=== PATIENT | female | born 1970 | race Caucasian/White ===

== ENCOUNTER 2016-08-01 05:22 | Emergency (ER) | payer MEDICAID ==
[~2016-08-01] VITALS: Ht 170.2 cm; Wt 80.0 kg
[2016-08-01 06:03] LABS: DAU SCREEN DISCLAIMER
[2016-08-01 06:17] LABS: BLOOD UREA NITROGEN 9 mg/dL (7-18)
[2016-08-01 06:23] LABS: ASPARTATE AMINO TRANSFERASE 26 U/L (15-37)
[2016-08-01 06:24] LABS: ACETAMINOPHEN < 2 mcg/mL (10-30)
== END 2016-08-01 10:20 | disposition home or self-care (01) ==
LOC: EDBD 05:22 → MERGE 09:59 → ED 09:59
DX: F10.120 Alcohol abuse with intoxication, uncomplicated (principal)
CPT/HCPCS: 36415; 80053; 80307; 80329; 84703; 85025; 99284; G0480